=== PATIENT | female | born 1965 ===

== ENCOUNTER 2017-08-29 16:00 | Emergency (ER) | payer MEDICAID ==
[2017-08-29 16:09] VITALS: BP 110/60; PULSE 89; RESP 20; TEMP 97.8; O2SAT 97
--- NOTE | 2017-08-29 16:36 | ED PDOC ---
HPI: General Adult Time Seen by Provider: 08/29/17 16:10 Chief Complaint (Nursing): Eye Problem Chief Complaint (Provider): Eye problem History Per: Patient History/Exam Limitations: no limitations Onset/Duration Of Symptoms: Days (x2 weeks) Current Symptoms Are (Timing): Still Present Severity: Mild Pain Scale Rating Of: 3 Additional Complaint(s): Madhuri Key is a 51 year old female, with a past medical history of hypertension, who presents to the emergency department complaining of bilateral eye redness associated with itchiness, sore throat and nose congestion onset for 2 weeks. She reports visiting her PMD for similar symptoms who prescribed her methylprednisolone and benadryl with mild improvement of symptoms. However, after she ran out of medications the symptoms worsen again. She denies any fever or chills. No further medical complaints. PMD: Rodolfo Haskins Past Medical History Reviewed: Historical Data, Nursing Documentation, Vital Signs Vital Signs: Last Vital Signs Temp 97.8 F 08/29/17 16:07 Pulse 89 08/29/17 16:07 Resp 20 08/29/17 16:07 BP 110/60 08/29/17 16:07 Pulse Ox 97 08/29/17 16:50 - Medical History PMH: Anxiety, Depression, HTN - Family History Family History: States: Unknown Family Hx - Social History Current smoker - smoking cessation education provided: No Alcohol: None Drugs: Denies - Home Medications Home Medications: Ambulatory Orders Medication Instructions Recorded Alprazolam [Xanax] 0.25 mg PO DAILY PRN #5 tab 10/14/14 Amoxicillin/Clavulanate [Augmentin 1 tab PO BID #14 tab 08/29/17 875 MG-125 MG] Erythromycin 0.5% [Erythromycin 3.5 gm OP BID #1 tube 08/29/17 0.5% Oint] Mupirocin 2% Cream [Bactroban 30 applic TOP BID #1 tube 08/29/17 Cream] - Allergies Allergies/Adverse Reactions: Allergies Allergy/AdvReac Type Severity Reaction Status Date / Time No Known Allergies Allergy Verified 10/14/14 11:34 Review of Systems ROS Statement: Except As Marked, All Systems Reviewed And Found Negative Constitutional: Negative for: Fever, Chills Eyes: Positive for: Redness, Other (itchiness) ENT: Positive for: Nose Congestion, Throat Pain Physical Exam - Reviewed Nursing Documentation Reviewed: Yes Vital Signs Reviewed: Yes - Physical Exam Appears: Positive for: Well, Non-toxic, No Acute Distress Head Exam: Positive for: ATRAUMATIC, NORMAL INSPECTION, NORMOCEPHALIC Skin: Positive for: Normal Color, Warm, Dry Eye Exam: Positive for: Normal appearance, EOMI, PERRL, Conjunctival injection ( mild bilateral), Other (erythema and mild edema to medial canthus) ENT: Positive for: Normal ENT Inspection, Other (bilateral nare erythema) Neck: Positive for: Normal, Painless ROM, Supple Cardiovascular/Chest: Positive for: Regular Rate, Rhythm. Negative for: Murmur Respiratory: Positive for: Normal Breath Sounds. Negative for: Respiratory Distress Extremity: Positive for: Normal ROM. Negative for: Deformity, Swelling Neurologic/Psych: Positive for: Alert, Oriented - ECG O2 Sat by Pulse Oximetry: 97 (RA) Pulse Ox Interpretation: Normal Medical Decision Making Medical Decision Making: Initial Impression: sinusitis, conjunctivitis, URI Initial Plan: RX: Augmentin Gent optho ointment Bactroban for nares ~ Scribe Attestation: Documented by Dipak Estrada, acting as a scribe for Zulema Ferraro PA-C. Provider Scribe Attestation: All medical record entries made by the Scribe were at my direction and personally dictated by me. I have reviewed the chart and agree that the record accurately reflects my personal performance of the history, physical exam, medical decision making, and the department course for this patient. I have also personally directed, reviewed, and agree with the discharge instructions and disposition. Disposition - Clinical Impression Clinical Impression: Sinusitis, Conjunctivitis - Patient ED Disposition Is Patient to be Admitted: No - Disposition Disposition: Routine/Home Disposition Time: 17:00 Condition: STABLE Prescriptions: Amoxicillin/Clavulanate [Augmentin 875 MG-125 MG] 1 tab PO BID #14 tab Erythromycin 0.5% [Erythromycin 0.5% Oint] 3.5 gm OP BID #1 tube Mupirocin 2% Cream [Bactroban Cream] 30 applic TOP BID #1 tube Instructions: Sinusitis (ED), Conjunctivitis (ED) Forms: [employer] (Barbadian) Print Language: VIETNAMESE
== END 2017-08-29 17:10 | disposition home or self-care (01) ==
LOC: H.ER 16:00
DX: H10.9 Unspecified conjunctivitis (principal); J32.9 Chronic sinusitis, unspecified; F32.9 Major depressive disorder, single episode, unspecified; F41.9 Anxiety disorder, unspecified; I10 Essential (primary) hypertension

== ENCOUNTER 2017-12-19 17:50 | Emergency (ER) | payer MEDICAID ==
[2017-12-19 17:58] VITALS: BMI 26.6
[2017-12-19] MEDS ORDERED: Albuterol-Ipratrop 3 mg / 0.5 (3 ml) UD INH STA (18:20)
--- NOTE | 2017-12-19 18:25 | ED PDOC ---
HPI: CCC, URI, Sore Throat Time Seen by Provider: 12/19/17 18:13 Chief Complaint (Nursing): Cough, Cold, Congestion Chief Complaint (Provider): Cough, chest pain, SOB, fever History Per: Patient History/Exam Limitations: no limitations Have you had recent travel within the past 21 days to any of the following countries: [place], [place], [place] or [place]?: No Onset/Duration Of Symptoms: Days Current Symptoms Are (Timing): Still Present Associated Symptoms: Fever, Chills, Cough, Nasal Congestion, Other (Headache ). denies: Sore Throat, Sputum, Nausea Ear Symptoms: Bilateral: None Severity: Moderate Additional Complaint(s): 52 yo female with history of HTN, asthma, and high cholesterol resents with cough and fever since yesterday. Pt reports pain when coughing. Pt reports fever last night but did not take temperature. Pt took mucinex today. Past Medical History Reviewed: Historical Data, Nursing Documentation, Vital Signs Vital Signs: Last Vital Signs Temp 102.7 F H 12/19/17 19:49 Pulse 123 H 12/19/17 19:49 Resp 20 12/19/17 19:49 BP 115/68 12/19/17 17:58 Pulse Ox 96 12/19/17 19:49 - Medical History PMH: Anxiety, Asthma, Depression, HTN, Hypercholesterolemia - Surgical History Surgical History: No Surg Hx - Family History Family History: States: Unknown Family Hx - Living Arrangements Living Arrangements: With Family - Social History Current smoker - smoking cessation education provided: No - Home Medications Home Medications: Ambulatory Orders Medication Instructions Recorded Alprazolam [Xanax] 0.25 mg PO DAILY PRN #5 tab 10/14/14 Amoxicillin/Clavulanate [Augmentin 1 tab PO BID #14 tab 08/29/17 875 MG-125 MG] Erythromycin 0.5% [Erythromycin 3.5 gm OP BID #1 tube 08/29/17 0.5% Oint] Mupirocin 2% Cream [Bactroban 30 applic TOP BID #1 tube 08/29/17 Cream] - Allergies Allergies/Adverse Reactions: Allergies Allergy/AdvReac Type Severity Reaction Status Date / Time No Known Allergies Allergy Verified 12/19/17 17:59 Review of Systems ROS Statement: Except As Marked, All Systems Reviewed And Found Negative Constitutional: Positive for: Fever, Chills Respiratory: Positive for: Cough, Shortness of Breath Musculoskeletal: Negative for: Neck Pain, Back Pain Physical Exam - Reviewed Nursing Documentation Reviewed: Yes Vital Signs Reviewed: Yes - Physical Exam Appears: Positive for: Well, Non-toxic, No Acute Distress Head Exam: Positive for: ATRAUMATIC, NORMAL INSPECTION, NORMOCEPHALIC Skin: Positive for: Normal Color, Warm, DRY Eye Exam: Positive for: Normal appearance ENT: Positive for: Normal ENT Inspection Neck: Positive for: Normal, Painless ROM Cardiovascular/Chest: Positive for: Regular Rate, Rhythm Respiratory: Positive for: CNT, Normal Breath Sounds Gastrointestinal/Abdominal: Positive for: Normal Exam, Bowel Sounds, Soft. Negative for: Tenderness Back: Positive for: Normal Inspection Extremity: Positive for: Normal ROM Neurologic/Psych: Positive for: Alert, Oriented - ECG O2 Sat by Pulse Oximetry: 98 Medical Decision Making Medical Decision Making: Endorsed pending labs and re-evaluation. Tylenol given for fever. Disposition - Clinical Impression Clinical Impression: Cough - Patient ED Disposition Is Patient to be Admitted: Transfer of Care - Disposition Disposition: Transfer of Care Disposition Time: 20:00 Condition: STABLE Forms: [employer] (Frisian)
[2017-12-19] MEDS ORDERED: Sodium Chloride 0.9% 1,000 ML IV STA ×2 (18:26→21:23)
[2017-12-19 20:02] LABS: BASO # 0.1 K/uL (0.0-0.2); BASO % 0.8 % (0.0-2.0); EOS % 0.3 % (0.0-4.0); HEMOGLOBIN 13.6 g/dL (12.0-16.0); LYMPH # 1.4 K/uL (1.0-4.3); LYMPH % 19.7 % (20.0-40.0); MEAN CELL VOLUME 86.1 fl (81.0-99.0); MEAN CORPUSCULAR HEMOGLOBIN 28.8 pg (27.0-31.0); MEAN CORPUSCULAR HGB CONC 33.4 g/dL (33.0-37.0); MEAN PLATELET VOLUME 7.4 fl (7.2-11.7); MONO % 13.6 % (0.0-10.0); NEUT # 4.7 K/uL (1.8-7.0); NEUT % 65.6 % (50.0-75.0); NRBC % 0.3 % (0.0-0.0); RBC 4.74 Mil/uL (3.80-5.20); RED CELL DISTRIBUTION WIDTH 14.6 % (11.5-14.5); WHITE BLOOD COUNT 7.1 K/uL (4.8-10.8)
[2017-12-19 20:15] LABS: VENOUS BLOOD GAS PCO2 46 mmHg (40-60); VENOUS BLOOD GAS PO2 45 mm/Hg (30-55); VENOUS BLOOD PH 7.45 (7.32-7.43)
[2017-12-19 20:20] LABS: ALB/GLOB RATIO 1.2 (1.0-2.1); ALBUMIN 4.3 g/dL (3.5-5.0); ALT/SGPT 175 U/L (9-52); AST/SGOT 124 U/L (14-36); BLOOD UREA NITROGEN 11 mg/dl (7-17); CALCIUM 9.5 mg/dL (8.4-10.2); GFR AFRICAN-AMERICAN > 60; GFR NON-AFRICAN AMERICAN > 60
[2017-12-19 21:26] VITALS: RESP 18
--- NOTE | 2017-12-19 22:00 | ED PDOC ---
- Laboratory Results Result Diagrams: 12/19/17 19:30 12/19/17 19:30 - ECG O2 Sat by Pulse Oximetry: 96 - Radiology X-Ray: Interpreted by Me (CXR) X-Ray Interpretation: No Acute Disease - Progress ED Course And Treament: 1999 Signed out to me pending re-evaluation. 2030 Pt. in no distress. Resting comfortably. Reports bodyaches have improved but still present. Denies chest pain, SOB. Informed of +flu test. Tamiflu PO ordered. Temp: 102.4, HR: 105 Motrin PO ordered. Additional IV NS bolus x 1 ordered. 2236 Repeat temp: 99.4 2324 On teletypesetter monitor HR: 98 bpm On re-evaluation, pt. reports feeling much better. Denies chest pain, SOB. Instructed to drink plenty of fluids at home and to continue Tylenol or Motrin for fever. Also told to f/u with PMD for further evaluation. Disposition - Clinical Impression Clinical Impression: Influenza - POA Present On Arrival: None - Disposition Referrals: Louis Mcginnis [Outside] Disposition: Routine/Home Disposition Time: 23:26 Condition: IMPROVED Prescriptions: Oseltamivir [Tamiflu] 75 mg PO BID #9 cap Instructions: Flu, Adult (DC) Forms: [employer] (Greek) Print Language: BAHRAINI
[2017-12-19 22:37] VITALS: BP 104/56; PULSE 112; TEMP 99.3
[2017-12-19 23:26] VITALS: O2SAT 96
--- NOTE | 2017-12-20 08:29 | RAD ---
HISTORY: chest pain, cough COMPARISON: No prior. TECHNIQUE: Chest PA and lateral FINDINGS: LUNGS: No focal alveolar infiltrate is seen. Trachea is midline. Minor interstitial prominence is noted. PLEURA: No significant pleural effusion identified. No pneumothorax apparent. CARDIOVASCULAR: Normal. OSSEOUS STRUCTURES: No significant abnormalities. VISUALIZED UPPER ABDOMEN: Normal. OTHER FINDINGS: None. IMPRESSION: No active disease.
== END 2017-12-19 23:37 | disposition home or self-care (01) ==
LOC: H.ER 17:50
DX: J09.X2 Influenza due to identified novel influenza A virus with other respiratory manifestations (principal); E78.00 Pure hypercholesterolemia, unspecified; F32.9 Major depressive disorder, single episode, unspecified; F41.9 Anxiety disorder, unspecified; I10 Essential (primary) hypertension; J45.909 Unspecified asthma, uncomplicated
CPT/HCPCS: 71046; 80053; 82803; 85025; 87040; 87804; 94150; 94640; 96360; 99284; J7040